=== PATIENT | male | born 1995 | race Caucasian/White ===

== ENCOUNTER 2016-12-15 17:06 | Emergency (ER) | payer OTHER ==
[2016-12-15] MEDS ORDERED: NS 0.9% 1000 ML* 2,000 ML IV ONE (17:36)
[2016-12-15] MEDS ORDERED: Ondansetron INJ* 2 MG/ML VIAL IV ONE (18:08)
[2016-12-15 19:23] LABS: Benzodiazepine Urine Screen None Detected (None Detect)
[2016-12-15 20:40] VITALS: BP 119/63
--- NOTE | 2016-12-15 23:45 | ED ---
Min Orr Rebecca, scribed for Mee Broussard MD on 12/15/16 at 1725 . Substance Abuse/Use - HPI Summary HPI Summary: Ptis a 21 y/o M JANELLE who presents to ED with EtOH intoxication characterized as stuporous. Pt reports having "just a few drinks" then stating he had 4-5 drinks [employer]. Pt is able to answer questions. - History Of Current Complaint Chief Complaint: EDSubstanceAbuse Stated Complaint: ETOH Time Seen by Provider: 12/15/16 17:12 Hx Obtained From: Patient, EMS Ingestion History: Type/Name Of Drug - EtOH, Amount Ingested - 4-5 drinks, per pt Overdose Characteristics: Oral Timing Of Abuse: Binge Use Character: Stuporous PMH/Surg Hx/FS Hx/Imm Hx Endocrine/Hematology History: Denies: Hx Diabetes Cardiovascular History: Denies: Hx Hypertension Infectious Disease History: No Infectious Disease History: Denies: Traveled Outside the [place] in Last 30 Days - Family History Known Family History: Negative: Diabetes - Social History Occupation: Student Alcohol Use: Present with EtOH intoxication Review of Systems Negative: Fever Positive: Other - EtOH intoxication - stuporous All Other Systems Reviewed And Are Negative: Yes Physical Exam - Summary Physical Exam Summary: General: Well appearing, no pain distress, sleepy Skin: Warm, Skin Color Reflects Adequate Perfusion, Dry Eyes: EOMI, LAVINIA ENT: Pharynx normal, TMs normal Neck: Supple, nontender Respiratory: CTA, breath sounds present, no rhonchi, no wheezes, no rales Cardiovascular: RRR, no murmur, no rub, no gallop, Abdomen: Soft, nontender, Non-distended, no guarding, no rebound Bowel: Present Musculoskeletal: BENITO, No edema Neuro: Answers questions appropriately Psych: Sleepy Triage Information Reviewed: Yes Vital Signs On Initial Exam: Initial Vitals Temp Pulse Resp BP Pulse Ox 97.2 F 83 21 110/67 95 12/15/16 17:07 12/15/16 17:07 12/15/16 17:07 12/15/16 17:07 12/15/16 17:07 Vital Signs Reviewed: Yes Diagnostics - Vital Signs Vital Signs Temp Pulse Resp BP Pulse Ox 12/15/16 17:07 97.2 F 83 21 110/67 95 - Laboratory Lab Results: Lab Results 12/15/16 Range/Units 18:56 Urine Opiates Screen None detected (None Detect) Ur Barbiturates Screen None detected (None Detect) Ur Phencyclidine Scrn None detected (None Detect) Ur Amphetamines Screen None detected (None Detect) U Benzodiazepines Scrn None detected (None Detect) Urine Cocaine Screen None detected (None Detect) U Cannabinoids Screen None detected (None Detect) Lab Statement: Any lab studies that have been ordered have been reviewed, and results considered in the medical decision making process. Course/Dx - Diagnoses Provider Diagnoses: Acute alcohol intoxication Discharge - Discharge Plan Condition: Stable Disposition: HOME Patient Education Materials: Alcohol Intoxication (ED) Referrals: [facility] - Ari MEDEIROS [Medical Doctor] - 3 Days The documentation as recorded by the Min louie Rebecca accurately reflects the service I personally performed and the decisions made by Aarti walker Justine, MD.
== END 2016-12-15 20:39 | disposition home or self-care (01) ==
LOC: ED 17:06
DX: F10.129 Alcohol abuse with intoxication, unspecified (principal); Z04.8 Encounter for examination and observation for other specified reasons
CPT/HCPCS: 36415; 80307; 96361; 96374; 99283; J2405